=== PATIENT | male | born 1995 | race Caucasian/White ===

== ENCOUNTER 2023-10-25 09:18 | Emergency (ER) | payer OTHER, SELFPAY ==
[2023-10-25 09:26] VITALS: BP 199/134; PULSE 99; RESP 16; TEMP 36.4; O2SAT 100
[2023-10-25 09:29] VITALS: BP 201/141
--- NOTE | 2023-10-25 09:43 | ED.GENADULT ---
HPI - General Adult General Chief complaint: Allergic Reaction Stated complaint: Swollen Tongue Time Seen by Provider: 10/25/23 09:43 Source: patient Mode of arrival: ambulatory Limitations: no limitations History of Present Illness HPI narrative: 28 yo M presents with c/o R sided sore throat for 1 wk. Noticed swelling to R side of neck, tongue, face that is getting progressively worse. Afebrile. No difficult swalllowing but states can't not stick out my tongue. feels stuck . Stopped taking BP meds 5 days ago. Inconsistent taking them and sometimes forgets. BP elevated today. Denies headache, CP. All systems reviewed and negative except as noted above. Related Data Allergies Allergy/AdvReac Type Severity Reaction Status Date / Time pineapple Allergy Rash Verified 10/25/23 10:54 Review of Systems Review of Systems: CONSTITUTIONAL: Denies fever, chills, or sweats. EYES: Denies visual changes, redness, or discharge. ENT: Denies rhinorrhea, congestion. Reports sore throat. Denies otalgia. CARDIOVASCULAR: Denies chest pain, palpitations, or edema. RESPIRATORY: Denies cough or dyspnea. GASTROINTESTINAL: Denies abdominal pain, nausea, vomiting, or diarrhea. GENITOURINARY: Denies dysuria or hematuria. SKIN: Denies rash or itching. MUSCULOSKELETAL: Denies back pain, joint pain, or myalgia. NEUROLOGIC: Denies headache, numbness, or weakness. PSYCHIATRIC: Denies anxiety or depression. All other systems reviewed are negative, except as documented in HPI. [facility] Past Medical History Medical History (Updated 10/25/23 @ 10:19 by Gala George NP) HTN (hypertension) Hyperlipidemia Type 2 diabetes mellitus without complications Surgical History Surgical History No history of previous surgery Family History Family History Father Diabetes mellitus Social History Social History (Updated 10/24/21 @ 13:57 by Anali Sims, [employer] DRIVER) Social History: Lives with his in [place], they have one boy (b. 2020). 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 Lifelong non-smoker. 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 There is no relevant family history pertinent to the presenting complaint. Exam Narrative: GENERAL: This is a well-nourished, well-developed patient, in no apparent distress. HEAD: normocephalic, atraumatic. EYES: PERRL. Sclera clear/white. Vision is grossly intact. EARS: External ears normal, auditory canals clear and without drainage, TMs normal without perforation. Hearing grossly intact. NOSE: External nose normal with no obvious nasal discharge, nares without redness, no rhinorrhea. THROAT: Mucous membranes moist, erythematous, R tonisil 3+, L tonsil 2+ NECK: , enlarged tender cervical lymph nodes. neck swollen and firm CARDIOVASCULAR: Regular rate and rhythm without murmurs, gallops, or rubs. RESPIRATORY: Clear to auscultation. Breath sounds equal bilaterally. No wheezes, rales, or rhonchi. SKIN: warm, Dry, intact with no suspicious lesions or rash, good texture and turgor. NEURO: awake, alert, and oriented to person, place and time. There were no obvious focal neurologic abnormalities. EXTREMITIES: No joint tenderness, effusion, or edema noted. Course Course Level of Care: Express Care Visit Vital Signs Vital signs: Vital Signs Temperature 36.4 C 10/25/23 09:26 Pulse Rate 99 10/25/23 09:26 Respiratory Rate 16 10/25/23 09:26 Blood Pressure 199/134 H
[2023-10-25 09:58] VITALS: BP 192/118; PULSE 99; RESP 16; O2SAT 100
== END 2023-10-25 10:25 | disposition short-term general hospital (02) ==
PROVIDERS: Emergency Provider Nurse Practitioner Family; PCP Nurse Practitioner Family
DX: J02.9 Acute pharyngitis, unspecified (principal); R59.0 Localized enlarged lymph nodes; I10 Essential (primary) hypertension; E78.5 Hyperlipidemia, unspecified; E11.9 Type 2 diabetes mellitus without complications
CPT/HCPCS: 87081; 87880; 99213; G0463

== ENCOUNTER 2023-10-25 10:42 | Emergency (ER) | payer OTHER, SELFPAY ==
--- NOTE | ~2023-10-25 | CT_ITS ---
EXAMINATION: CT soft tissue neck w con DATE: 10/25/2023 14:01 INDICATION: Sore throat with neck swelling TECHNIQUE: Computed tomography (CT) of the neck was performed with 75 mL Omnipaque-350 intravenous co ntrast. The dose-length product was 621.82 mGy-cm. Automated exposure control and iterative reconstru ction technique were employed. COMPARISON: None FINDINGS: The there is soft tissue swelling in the sublingual and submandibular space with geographic areas of hypovascularity. There is mass effect on the laryngopharynx on the right causing mild narro wing. There is enlarged right cervical lymph nodes, largest measuring 1.9 cm, likely reactive. There is right maxillary mucosal thickening. There is enlargement of the palatine and lingual tonsils, righ t greater than left. No significant vascular abnormality. Lung apices are unremarkable. Thyroid gland is unremarkable. IMPRESSION: 1. Abnormal phlegmonous changes of the sublingual and submandibular space, right greater than left wi th areas of geographic hypovascularity, suspicious for developing abscess formation. There is mild ma ss effect on the laryngopharynx on the right. 2: Enlarged palatine and lingual tonsils, right greater than left, consistent with tonsillitis. 3: Moderate right maxillary sinusitis. 4: Right cervical lymphadenopathy, likely reactive. Reviewed, dictated and finalized at location A. IMPRESSION: 1. Abnormal phlegmonous changes of the sublingual and submandibular space, righ t greater than left with areas of geographic hypovascularity, suspicious for de veloping abscess formation. There is mild mass effect on the laryngopharynx on the right. 2: Enlarged palatine and lingual tonsils, right greater than left, consistent w ith tonsillitis. 3: Moderate right maxillary sinusitis. 4: Right cervical lymphadenopathy, likely reactive.
[2023-10-25 10:58] VITALS: BP 183/100; PULSE 106; RESP 18; TEMP 36.9; O2SAT 100
[2023-10-25 11:15] VITALS: RESP 18
--- NOTE | 2023-10-25 12:46 | ED.GENADULT ---
HPI - General Adult General Chief complaint: Unspecified <Figueroa Albarran PA-C - Last Filed: 10/25/23 18:47> Stated complaint: neck swelling <Figueroa Albarran PA-C - Last Filed: 10/25/23 18:47> Time Seen by Provider: 10/25/23 12:15 <Figueroa Albarran PA-C - Last Filed: 10/25/23 18:47> Source: patient <Figueroa Albarran PA-C - Last Filed: 10/25/23 18:47> Mode of arrival: ambulatory <Figueroa Albarran PA-C - Last Filed: 10/25/23 18:47> Limitations: no limitations <Figueroa Albarran PA-C - Last Filed: 10/25/23 18:47> History of Present Illness HPI narrative: This is a 28-year-old male who presents to the ED with chief complaint of sore throat and neck swelling for the past week. Patient reports that the some and her swelling is worse on the right but is bilateral. Reports pain with swallowing but otherwise no dental pain or neck pain. Denies fevers, chills, nausea, vomiting, chest pain, shortness of breath. Denies cough. Denies any recent illness. States he has been told the past he has hypertension and prediabetes <Figueroa Albarran PA-C - Last Filed: 10/25/23 18:47> Related Data Allergies/adverse reactions: Allergies Allergy/AdvReac Type Severity Reaction Status Date / Time pineapple Allergy Rash Verified 10/25/23 10:54 <Figueroa Albarran PA-C - Last Filed: 10/25/23 18:47> Review of Systems Review of Systems: All systems as dictated in HPI <Figueroa Albarran PA-C - Last Filed: 10/25/23 18:47> [facility] Past Medical History Medical History: Medical History (Updated 10/25/23 @ 18:16 by Figueroa Albarran PA-C) HTN (hypertension) Hyperlipidemia Type 2 diabetes mellitus without complications <Figueroa Albarran PA-C - Last Filed: 10/25/23 18:47> Surgical History Surgical History: Surgical History No history of previous surgery <Figueroa Albarran PA-C - Last Filed: 10/25/23 18:47> Family History Family History: Family History Father Diabetes mellitus <Figueroa Albarran PA-C - Last Filed: 10/25/23 18:47> Social History Social History: Social History (Updated 10/24/21 @ 13:57 by Anali Sims, GR[employer]ING M[employer] OPERATOR) Social History: Lives with his in [place], they have one boy (b. 2020). 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 Lifelong non-smoker. 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 HEAD: Normocephalic, atraumatic. EYES: PERRLA and EOMI. ENT: Submandibular swelling and firmness present bilaterally, worse on the right. Minimal erythema to the skin externally. The tongue is being pushed superiorly. No trismus. No drooling. Floor of the mouth appears to be intact. Nares clear, no rhinorrhea or epistaxis. Mucous membranes moist. Mild bilateral tonsils swelling, worse on the left. No obvious exudates. Airway intact. NECK: Supple. No adenopathy or masses. CHEST: No respiratory distress. Clear to auscultation. No wheezes rales or rhonchi HEART: Regular rate and rhythm. No murmur heard. Normal peripheral pulses. ABDOMEN: Soft, nontender, nondistended, normal active bowel sounds. MSK: Normal range of motion. No edema. SKIN: Warm, dry, no rash. NEURO: Alert and oriented x3. No focal deficits. PSYCH: Normal mood and affect. <BRET Marie Last Filed: 10/25/23 18:47> Course GRINDING M[employer] OPERATOR/PA Physician Supervision For this patient encounter, I reviewed the GRINDING MILL OPERATOR or PA documentation, treatment plan, and medica
[2023-10-25 13:12] LABS: Basophils Percent Auto 0.3 % (0.2-1.2); Eosinophils Percent Auto 0.3 % (0-4.4); Hematocrit 52.9 % (42.0-52.0); Hemoglobin 18.3 g/dL (14.0-18.0); Immature Granulocyte Absolute 0.06 K/mm3 (0.00-0.031); Immature Granulocyte Percent A 0.4 % (0-0.5); Lymphocytes Absolute Auto 1.96 K/mm3 (0.9-3.2); Lymphocytes Percent Auto 13.4 % (18.3-44.2); Mean Corpuscular HGB Conc 34.6 g/dl (32-36); Mean Corpuscular Hemoglobin 29.3 pg (26-34); Mean Corpuscular Volume 84.8 fl (80-100); Mean Platelet Volume 10.3 fl (7.4-10.4); Monocytes Percent Auto 6.6 % (2.6-8.5); Neutrophils Absolute Auto 11.5 K/mm3 (1.3-6.7); Platelet Count Result 372 k/mm3 (150-375); Red Blood Count 6.24 M/mm3 (4.6-6.20); Red Cell Distribution Width 12.7 % (11.5-14.5); White Blood Count 14.6 K/mm3 (4.5-10.0)
[2023-10-25 13:21] LABS: Lactic Acid Reflex 1.5 mmol/L (0.7-2.0)
[2023-10-25 13:25] LABS: Alanine Aminotransferase 33 U/L (6-50); Albumin Level 4.8 g/dL (3.5-5.1); Alkaline Phosphatase 125 U/L (38-126); Anion Gap 9 mmol/L (4-12); Aspartate Amino Transferase 21 U/L (17-59); Blood Urea Nitrogen 12 mg/dL (9-20); CRP 4.5 mg/dL (<1.0); Calcium 9.2 mg/dL (8.4-10.2); Carbon Dioxide 28 mmol/L (22-30); Chloride 101 mmol/L (98-107); Estimated CRCL calculation 196 ml/min; Estimated Glomerular Filt Rate > 60; Glucose 265 mg/dL (65-110); Potassium 3.8 mmol/L (3.4-5.0); Sodium 138 mmol/L (137-145)
[2023-10-25] MEDS: ceFAZolin 2 GM/D5W 50 ML 2 GM/50 ML BAG IVPB (15:01)
[2023-10-25] MEDS: methylPREDNISolone SOD SUCC 40 MG VIAL IV PUSH (15:01)
[2023-10-25] MEDS: SODIUM CHLORIDE 0.9% IV 1,000 ML 999 ML IV CONT (17:39)
[2023-10-25] MEDS: lisinopriL 20 MG TABLET 40 MG PO (17:39)
[2023-10-25 17:44] VITALS: BP 191/123; PULSE 110; RESP 18; TEMP 36.7; O2SAT 100
[2023-10-25] MEDS: AMPICILLIN SULB 3 GM/NS 100 ML 3 GM/100 ML VIAL IVPB (18:16)
[2023-10-25 18:31] VITALS: BP 180/117; PULSE 103; RESP 18; TEMP 36.8; O2SAT 100
== END 2023-10-25 18:35 | disposition short-term general hospital (02) ==
PROVIDERS: Emergency Provider Physician Assistant; PCP Nurse Practitioner Family
DX: K12.2 Cellulitis and abscess of mouth (principal); I10 Essential (primary) hypertension; R73.03 Prediabetes; E78.5 Hyperlipidemia, unspecified; J32.0 Chronic maxillary sinusitis
CPT/HCPCS: 36415; 70491; 80053; 83605; 85025; 86140; 87081; 87880; 96361; 96365; 96367; 96375; 99285; A9270; J0295; J0690; J2919; J7030; Q9967